=== PATIENT | female | born 1960 | race Two or more races ===

== ENCOUNTER 2024-03-25 04:47 | Inpatient (IN) | payer OTHER, MEDICAID ==
[2024-03-25] VITALS (7 sets, daily range): BP systolic 111–133; BP diastolic 63–73; PULSE 64–76; RESP 18; TEMP 98.1–98.5; O2SAT 86–95
[~2024-03-25] VITALS: Ht 149.9 cm; Wt 79.9 kg
[2024-03-25 05:43] LABS: Basophils # (auto) 0 10 ^3/uL (0-0.2); Basophils % (auto) 0.3 % (0.0-2.0); Eosinophils # (auto) 0.1 10 ^3/uL (0-0.8); Eosinophils % (auto) 1.8 % (0.0-7.0); Hemoglobin 13.2 g/dL (12.2-16.2); Lymphocytes # (auto) 0.8 10 ^3/uL (0.4-5.4); Lymphocytes % (auto) 11.8 % (10.0-50.0); Mean Corpuscular Hemoglobin 28.2 pg (28.0-32.0); Mean Corpuscular Hgb Conc. 33.9 g/dL (32.0-36.0); Monocytes # (auto) 0.9 10 ^3/uL (0-1.3); Monocytes % (auto) 12.6 % (0.0-12.0); Neutrophils # (auto) 5.1 10 ^3/uL (1.6-8.6); Neutrophils % (auto) 73.5 % (37.0-80.0); Platelet Count (auto) 251 10^3/uL (140-450); Red Cell Distribution Width 14.4 % (11.8-14.3)
[2024-03-25 05:50] LABS: Chloride 86 mmol/L (98-107); Potassium 3.5 mmol/L (3.5-5.1); Sodium 123 mmol/L (136-145)
[2024-03-25 05:51] LABS: Anion Gap 9 (5-15); Calcium 9.7 mg/dL (8.7-10.4); Carbon Dioxide 28 mmol/L (20-30)
[2024-03-25 05:56] LABS: Blood Urea Nitrogen 10 mg/dL (9-23); Glucose 135 mg/dL (74-106)
[2024-03-25] MEDS ORDERED: ONDANSETRON HCL 4 MG/2 ML VIAL IV PRN (07:00)
[2024-03-25] MEDS ORDERED: MORPHINE SULFATE INJ 2 MG/ml SYRG IV PRN (07:00)
[2024-03-25] MEDS ORDERED: NITROGLYCERIN 0.4 MG SL TAB SL PRN (07:00)
[2024-03-25 08:27] LABS: COVID19 ANTIGEN SOFIA FIA POSITIVE (NEGATIVE)
[2024-03-25] MEDS: SODIUM CHLORIDE 0.9% 1,000 ML IV SCH ×2 (09:13→16:16)
[2024-03-25] MEDS: amLODIPine BESYLATE 5 MG TAB PO SCH (10:10)
[2024-03-25] MEDS: ACETAMINOPHEN 325 MG TAB PO PRN (13:16)
[2024-03-25 15:52] LABS: Magnesium 1.5 mg/dL (1.6-2.6)
[2024-03-25] MEDS: ALBUTEROL SULF 2.5 MG/0.5ML(0.5%) NEB SOLN NEB SCH (17:00)
[2024-03-25] MEDS: MAGNESIUM SULFATE 1GM/100ML 100 ML IV SCH (17:26)
[2024-03-25] MEDS: ATORVASTATIN 20 MG TAB PO SCH (22:11)
[2024-03-25] MEDS ORDERED: LORazepam 2MG/ML-1ML VIAL IV PRN (22:45)
[2024-03-25 23:05] LABS: Urine Bacteria None Seen /hpf (None Seen)
[2024-03-25 23:25] LABS: Urine Blood Negative /uL (Negative); Urine Clarity Clear (Clear); Urine Color Colorless (Yellow); Urine Protein, UAD Negative (Negative); Urine Specific Gravity 1.006 (1.001-1.035); Urine Urobilinogen Normal (Negative); Urine WBC 4 /hpf (0 - 5); Urine pH 6.5 (5.0-9.0)
[2024-03-25 23:33] LABS: Amphetamine Screen, Urine Neg (NEGATIVE); Barbiturate Scree,Urine Neg (NEGATIVE); Benzodiazephine Screen, Urine Neg (NEGATIVE); Cannabinoid Screen, Urine Neg (NEGATIVE); Cocaine Screen, Urine Neg (NEGATIVE); Opiate Scree,Urine Neg (NEGATIVE); Phencyclidine Screen, Urine Neg (NEGATIVE)
[2024-03-26] VITALS (16 sets, daily range): BP systolic 108–130; BP diastolic 57–77; PULSE 54–76; RESP 16–22; TEMP 98–98.8; O2SAT 93–99
[2024-03-26] MEDS ORDERED: MONT-8 PO (00:46)
[2024-03-26] MEDS ORDERED: IRBE150T49 PO (00:46)
[2024-03-26] MEDS ORDERED: HYDR25TA5 PO (00:46)
[2024-03-26] MEDS ORDERED: FLUT1INH28 INH (00:46)
[2024-03-26] MEDS ORDERED: ATOR40TA52 PO (00:46)
[2024-03-26] MEDS ORDERED: AMLO1TAB22 PO (00:46)
[2024-03-26] MEDS ORDERED: IBUP-1455 PO (00:46)
[2024-03-26 07:30] LABS: Chloride 99 mmol/L (98-107); Potassium 3.3 mmol/L (3.5-5.1); Sodium 128 mmol/L (136-145)
[2024-03-26 07:31] LABS: Anion Gap 2 (5-15); Calcium 8.7 mg/dL (8.7-10.4); Carbon Dioxide 27 mmol/L (20-30)
[2024-03-26 07:36] LABS: BUN/Creatinine Ratio 14.7 (10.0-20.0); Blood Urea Nitrogen 10 mg/dL (9-23); Glucose 117 mg/dL (74-106)
[2024-03-26] MEDS: POTASSIUM EFFERVESENT TAB 25 MEQ PO ONE (11:27)
[2024-03-26] MEDS: ALBUTEROL SULF HFA 90MCG INH 200DOSE IN SCH (14:23)
[2024-03-27] VITALS (14 sets, daily range): BP systolic 103–147; BP diastolic 50–71; PULSE 57–75; RESP 16–20; TEMP 97.9–98.4; O2SAT 97–100
[2024-03-27 06:03] LABS: Alanine Aminotransferase 43 U/L (7-40); Albumin 3.7 g/dL (3.2-4.8); Alkaline Phosphatase 65 U/L (46-116); Anion Gap 4 (5-15); Aspartate Aminotransferase 21 U/L (13-40); BUN/Creatinine Ratio 13.9 (10.0-20.0); Bilirubin, Total 0.5 mg/dL (0.2-1.0); Blood Urea Nitrogen 10 mg/dL (9-23); Calcium 8.4 mg/dL (8.7-10.4); Carbon Dioxide 27 mmol/L (20-30); Chloride 98 mmol/L (98-107); Glucose 116 mg/dL (74-106); Potassium 3.7 mmol/L (3.5-5.1); Sodium 129 mmol/L (136-145); Total Protein 6.4 g/dL (5.7-8.2)
[2024-03-27] MEDS: CHOLECALCIFEROL (VITD3) 1,000UNIT=25mCg TAB PO SCH (09:51)
[2024-03-27] MEDS: DOXYCYCLINE 100MG/250ML 250 ML IV SCH (09:51)
[2024-03-27] MEDS: ASCORBIC ACID 500 MG TAB PO SCH (09:51)
[2024-03-27] MEDS: ZINC SULFATE 220mg CAP or TAB PO SCH (09:52)
[2024-03-28] VITALS (11 sets, daily range): BP systolic 107–140; BP diastolic 59–71; PULSE 54–67; RESP 16–18; TEMP 97.8–98.7; O2SAT 95–99
[2024-03-28 10:07] LABS: Hepatitis B Surface Antigen Negative (Negative)
[2024-03-28 10:28] LABS: Hepatitis C Antibody Negative (Negative)
[2024-03-29] VITALS (7 sets, daily range): BP systolic 91–116; BP diastolic 49–60; PULSE 63–66; RESP 16–18; TEMP 97.4–98.2; O2SAT 93–96
[2024-03-29] MEDS ORDERED: ZINC220C10 PO (09:45)
[2024-03-29] MEDS ORDERED: CHOL500046 PO (09:45)
[2024-03-29] MEDS ORDERED: ASCO500T11 PO (09:45)
[2024-03-29] MEDS ORDERED: DOXY100C79 PO (09:45)
== END 2024-03-29 15:33 | disposition home or self-care (01) | DRG 177 ==
LOC: ER 04:47 → TELE 06:58 → TELE-EAST 06:58
PROVIDERS: ADMIT Nurse Practitioner; ATTEND Family Medicine
DX: U07.1 COVID-19 (principal); J12.82 Pneumonia due to coronavirus disease 2019; E87.1 Hypo-osmolality and hyponatremia; I10 Essential (primary) hypertension; E78.00 Pure hypercholesterolemia, unspecified; E83.42 Hypomagnesemia; R73.03 Prediabetes; S01.01XA Laceration without foreign body of scalp, initial encounter; G51.0 Bell's palsy; E66.9 Obesity, unspecified; I65.23 Occlusion and stenosis of bilateral carotid arteries; E87.6 Hypokalemia; J45.909 Unspecified asthma, uncomplicated; Z82.49 Family history of ischemic heart disease and other diseases of the circulatory system; Z83.3 Family history of diabetes mellitus; W18.39XA Other fall on same level, initial encounter; Y93.89 Activity, other specified; Y92.89 Other specified places as the place of occurrence of the external cause; Y99.8 Other external cause status
CPT/HCPCS: 36415; 70450; 71045; 80048; 80053; 80061; 80307; 81001; 83036; 83735; 84295; 84443; 84484; 85025; 86803; 87340; 87426; 93005; 93306; 93886; 94640; 95819; 96365; G0378; J3490

== ENCOUNTER 2024-04-10 16:39 | Emergency (ER) | payer OTHER, MEDICAID ==
[~2024-04-10] VITALS: Ht 149.9 cm; Wt 77.8 kg
[~2024-04-10 16:39] MED LIST: AMLO1TAB22 PO; ASCO500T11 PO; ATOR40TA52 PO; CHOL500046 PO; DOXY100C79 PO; FLUT1INH28 INH; HYDR25TA5 PO; IBUP-1455 PO; IRBE150T49 PO; MONT-8 PO; ZINC220C10 PO
[2024-04-10 19:34] LABS: Basophils # (auto) 0 10 ^3/uL (0-0.2); Basophils % (auto) 0.6 % (0.0-2.0); Eosinophils # (auto) 0.2 10 ^3/uL (0-0.8); Eosinophils % (auto) 3.2 % (0.0-7.0); Hematocrit 36.5 % (36.0-46.0); Hemoglobin 12.5 g/dL (12.2-16.2); Lymphocytes % (auto) 28.6 % (10.0-50.0); Mean Corpuscular Hemoglobin 28.6 pg (28.0-32.0); Mean Corpuscular Hgb Conc. 34.2 g/dL (32.0-36.0); Mean Corpuscular Volume 83.6 fL (80.0-100.0); Monocytes # (auto) 0.4 10 ^3/uL (0-1.3); Neutrophils # (auto) 4.4 10 ^3/uL (1.6-8.6); Neutrophils % (auto) 61.6 % (37.0-80.0); Platelet Count (auto) 285 10^3/uL (140-450); Red Blood Cells 4.36 10^6/uL (4.0-5.20); Red Cell Distribution Width 14.6 % (11.8-14.3); White Blood Cell 7.2 10^3/uL (4.4-10.8)
[2024-04-10 19:42] LABS: Chloride 100 mmol/L (98-107); Potassium 3.3 mmol/L (3.5-5.1); Sodium 134 mmol/L (136-145)
[2024-04-10 19:43] LABS: Anion Gap 7 (5-15); Calcium 9.9 mg/dL (8.7-10.4); Carbon Dioxide 27 mmol/L (20-30)
[2024-04-10 19:48] LABS: BUN/Creatinine Ratio 17.8 (10.0-20.0); Blood Urea Nitrogen 16 mg/dL (9-23); Glucose 106 mg/dL (74-106)
[2024-04-10 23:09] VITALS: BP 141/75; PULSE 74; RESP 15; TEMP 98.5; O2SAT 96
[2024-04-10] MEDS: POTASSIUM CHL 20 Meq TABLET PO ONE (23:10)
== END 2024-04-10 23:21 | disposition home or self-care (01) ==
LOC: ER 16:39
DX: R42 Dizziness and giddiness (principal); E87.6 Hypokalemia; E78.5 Hyperlipidemia, unspecified; I10 Essential (primary) hypertension; Z90.49 Acquired absence of other specified parts of digestive tract
CPT/HCPCS: 36415; 80048; 82962; 85025; 93005

== ENCOUNTER 2024-04-15 15:10 | Emergency (ER) | payer OTHER, MEDICAID ==
[~2024-04-15] VITALS: Ht 160 cm; Wt 81.8 kg
[2024-04-15 15:13] VITALS: BP 178/86; RESP 16; O2SAT 99
[2024-04-15 15:34] VITALS: PULSE 70
[2024-04-15 16:54] LABS: Basophils # (auto) 0 10 ^3/uL (0-0.2); Basophils % (auto) 0.3 % (0.0-2.0); Eosinophils # (auto) 0.4 10 ^3/uL (0-0.8); Eosinophils % (auto) 5.2 % (0.0-7.0); Hematocrit 38.3 % (36.0-46.0); Hemoglobin 13.1 g/dL (12.2-16.2); Lymphocytes % (auto) 24.2 % (10.0-50.0); Mean Corpuscular Hemoglobin 28.9 pg (28.0-32.0); Mean Corpuscular Hgb Conc. 34.1 g/dL (32.0-36.0); Mean Corpuscular Volume 84.7 fL (80.0-100.0); Monocytes # (auto) 0.4 10 ^3/uL (0-1.3); Monocytes % (auto) 5.5 % (0.0-12.0); Neutrophils # (auto) 5.3 10 ^3/uL (1.6-8.6); Neutrophils % (auto) 64.8 % (37.0-80.0); Nucleated Red Blood Cells % 0.1 %; Platelet Count (auto) 327 10^3/uL (140-450); Red Blood Cells 4.52 10^6/uL (4.0-5.20); Red Cell Distribution Width 14.7 % (11.8-14.3); White Blood Cell 8.2 10^3/uL (4.4-10.8)
[2024-04-15 17:03] LABS: Alanine Aminotransferase 70 U/L (7-40); Albumin 4.9 g/dL (3.2-4.8); Alkaline Phosphatase 75 U/L (46-116); Anion Gap 11 (5-15); Aspartate Aminotransferase 38 U/L (13-40); BUN/Creatinine Ratio 16.3 (10.0-20.0); Blood Urea Nitrogen 13 mg/dL (9-23); Calcium 10.2 mg/dL (8.7-10.4); Carbon Dioxide 24 mmol/L (20-30); Chloride 98 mmol/L (98-107); Glucose 113 mg/dL (74-106); Potassium 3.8 mmol/L (3.5-5.1); Sodium 133 mmol/L (136-145)
[2024-04-15 17:04] LABS: Bilirubin, Total 0.6 mg/dL (0.2-1.0); Total Protein 8.3 g/dL (5.7-8.2)
== END 2024-04-15 22:57 | disposition home or self-care (01) ==
LOC: EDSEX 15:10 → EDBD 15:10 → ER 15:10
DX: I10 Essential (primary) hypertension (principal); E78.5 Hyperlipidemia, unspecified; Z98.890 Other specified postprocedural states; Z79.899 Other long term (current) drug therapy
CPT/HCPCS: 36415; 80053; 84484; 85025; 93005